=== PATIENT | female | born 2000 | race Two or more races ===

== ENCOUNTER 2025-01-15 15:57 | Emergency (ER) | payer MEDICAID, SELFPAY ==
[2025-01-15 15:58] VITALS: BMI 22.1
[2025-01-15 16:48] VITALS: BP 115/79; PULSE 91; RESP 19; TEMP 37.4; O2SAT 97
--- NOTE | 2025-01-15 16:58 | PD.EDVAGBL ---
ED OB Contraction Preg RMI/HPI General Chief complaint: General Adult/Misc Complain Stated complaint: NEED BLOOD WORK TO CHECK FOR Time Seen by Provider: 01/15/25 16:56 Arrival date/time: 01/15/25 15:57 Limitations: no limitations RME / HPI RME / HPI Narrative: Patient is a 24-year-old female with no chronic medical history. She has had some vaginal spotting since yesterday. She denies any abdominal pain, nausea, vomiting. No fevers or chills. She is on a Depo-Provera shot for control. She has had no prior surgeries. No prior pregnancies. She has no dysuria. There are no other acute complaints. Related Data Allergies Allergy/AdvReac Type Severity Reaction Status Date / Time No Known Allergies Allergy Verified 01/15/25 15:58 Review of Systems Review of Systems Systems Reviewed: All systems reviewed, normal except as documented ED Exam General Limitations: Present no limitations General appearance: Present alert and in no apparent distress Head Head exam: Present atraumatic Eye Eye exam: Present normal appearance, PERRL and EOMI ENT ENT exam: Present normal exam, normal oropharynx and mucous membranes moist Neck Neck exam: Present normal inspection, full ROM and trachea midline Chest Chest inspection: Present normal inspection and symmetric chest wall rise Respiratory Respiratory exam: Present normal lung sounds bilaterally Cardiovascular Cardiovascular exam: Present regular rate, normal rhythm and normal heart sounds Abdominal Exam Abdominal exam: Present soft; Absent distention, tenderness or guarding Extremities Exam Extremities exam: Present normal inspection and full ROM Back Exam Back exam: Present normal inspection and full ROM Neurological Exam Neurological exam: Present alert and oriented X3 Psychiatric Psychiatric exam: Present normal affect and normal mood Skin Skin exam: Present warm, dry, intact and normal color Course Quality Measures none Orders Category Date Time Status CBC Stat Lab 01/15/25 17:17 Completed CMP [Comprehensive Metabolic Panel] Stat Lab 01/15/25 17:17 Completed HCG,Qualitative Serum Stat Lab 01/15/25 17:17 Completed UA, C/S IF [Urinalysis, C/S if Indicated] Stat Lab 01/15/25 18:39 Completed Vital Signs Vital signs: Vital Signs Temperature 99.3 F 01/15/25 16:48 Pulse Rate 91 01/15/25 16:48 Respiratory Rate 19 01/15/25 16:48 Blood Pressure 115/79 01/15/25 16:48 Pulse Oximetry (%) 97 01/15/25 16:48 Oxygen Delivery Method Room Air 01/15/25 16:48 Vaginal Bleeding MDM Narrative MDM Narrative: Patient is a 24-year-old female with no chronic medical history. She has had some vaginal spotting since yesterday. She denies any abdominal pain, nausea, vomiting. No fevers or chills. She is on a Depo-Provera shot for control. She has had no prior surgeries. No prior pregnancies. She has no dysuria. There are no other acute complaints. On exam, patient is nontoxic-appearing and in no visible signs of distress. The history was initially difficult to obtain as the patient would not respond to questions for the first few minutes. She later stated that she was then here today for some vaginal spotting that she experienced yesterday. Her abdomen is soft and nontender. Vital signs are stable. Her CBC, CMP, and screening hCG are unremarkable. Urinalysis is unremarkable. She will be discharged in the ER and asked to follow-up with her primary doctor. She may return here for any worsening or emergent changes. Patient data External records reviewed:: None Clinical information provided by:: patient and family Social determinants that could affect healthcare access:: none Patient has the following chronic illnesses:: n/a How is presenting disease/condition affected by chronic disease/condition?: no chronic disease Evaluation data The following diagnostics were reviewed and interpreted by me:: lab results (CBC, CMP, urinalysis, hCG are unremarkable) Lab and/or radiology exams considered but not ordered:: n/a Interpretation Summary: Workup is unremarkable Medications / Prescriptions Medications or Prescriptions considered but not ordered:: n/a Medication administrations:: n/a Consultations Consultation(s) initiated? (list below): No Diagnosis Vaginal Bleeding Differential Diagnosis: threatened , dysfunctional uterine bleeding, menometrorrhagia, incomplete and vaginal bleeding Most likely diagnosis given after review of the tests above:: Vaginal bleeding, menstruation Admission Indicated Admission indicated?: not indicated Admission Request Was there a request for admission?: No Disposition Plan Disposition Plan: Discharge Discharge Attestation Discharge Attestation: The patient and all family members were given an opportunity to ask questions and understood the discharge instructions. Discharge instructions specifically effects, indications for sooner follow up or return to the emergency department, and the expected course of current diagnosis. Patient condition: Stable Discharge Plan Plan Patient Disposition: HOME (Self Care) Patient condition on transfer: Stable Prescriptions/Referrals Referrals: Domenic Bear MD [Primary Care Provider] - In 1 week Problem List Clinical Impression: Menstruation, Vaginal bleeding Patient/Caregiver Discharge Instructions Education Materials: Understanding Uterine Bleeding Additional Instructions: - Your workup today was unremarkable. Please contact your primary doctor to schedule close follow-up appointment. Return to the emergency room at anytime for any emergent concerns. Print Language: [place] Stand Alone Forms: Maribel Award Info., Patient Portal Info Letter
[2025-01-15 17:39] LABS: Basophils # (Auto) 0.0 Thou/mm3 (0.0-0.2); Basophils % (Auto) 0 % (0-2.5); Eosinophils # (Auto) 0.1 Thou/mm3 (0.0-0.5); Eosinophils % (Auto) 1 % (0-10); Hematocrit 38.2 % (36.0-46.0); Hemoglobin 12.0 g/dL (12.0-16.0); Immature Granulocytes Auto 0.02 Thou/mm3 (0.00-0.00); Lymphocytes # (Auto) 1.9 Thou/mm3 (1.0-4.8); Lymphocytes % (Auto) 26 % (10-50); Mean Corpuscular HGB Conc 31.4 g/dl (31.0-37.0); Mean Corpuscular Hemoglobin 24.7 pg (25.0-35.0); Mean Corpuscular Volume 79 fL (80-100); Monocytes # (Auto) 0.7 Thou/mm3 (0.0-0.8); Monocytes % (Auto) 10 % (0-12); Neutrophils # (Auto) 4.5 Thou/mm3 (1.8-7.7); Neutrophils % (Auto) 62 % (37-80); Nucleated Red Blood Cell # 0.00 Thou/mm3 (0.00-0.00); Nucleated Red Blood Cell % 0 /100 WBC (0); Platelet Count 366 Thou/mm3 (140-440); RDW Standard Deviation 42.8 fL (36.4-46.3); Red Blood Count 4.86 Miln/mm3 (4.00-5.20); White Blood Count 7.2 Thou/mm3 (3.6-11.0)
[2025-01-15 17:45] LABS: Alanine Aminotransferase 11 U/L (10-49); Albumin, Serum 4.2 gm/dL (3.5-5.0); Albumin/Globulin Ratio 1.4 (1.2-2.2); Alkaline Phosphatase 70 U/L (46-116); Anion Gap 9 (7-16); Aspartate Amino Transferase 16 U/L (0-34); BUN/Creatinine Ratio 10 Ratio (12-20); Bilirubin,Total 0.3 mg/dL (0.3-1.2); Blood Urea Nitrogen 9 mg/dL (9-23); Calcium 9.7 mg/dL (8.3-10.6); Calcium (Corrected) 9.7 mg/dL (8.5-10.1); Carbon Dioxide 26.1 mMol/L (20.0-31.0); Chloride 106 mMol/L (98-107); Creatinine (Component) 0.9 mg/dL (0.6-1.3); Estimated Creatinine Clearance 79.7 mL/min (>60); Globulin 3.0 gm/dL (2.3-3.5); Glucose 92 mg/dL (74-106); Osmolality,Calculated 279 (275-295); Potassium 4.7 mMol/L (3.4-5.1); Sodium 141 mMol/L (136-145); Total Protein 7.2 gm/dL (5.7-8.2); eGFR > 60 See Note
[2025-01-15 17:48] LABS: HCG,Qualitative Serum Negative
[2025-01-15 19:04] LABS: Collection Type, Urine Voided
[2025-01-15 19:11] LABS: Bilirubin,Urine Negative (Negative); Blood,Urine 1+ (Negative); Clarity,Urine Clear (Clear/Hazy); Color,Urine Colorless (Lt Yel-Yel); Culture Indicated,Urine Not Indicated; Glucose, Urine Negative (Negative); Ketones,Urine Negative (Negative); Leukocyte Esterase,Urine Negative (Negative); Nitrite,Urine Negative (Negative); PH,Urine 7.5 (5.0-7.0); Protein,Urine Negative (Neg - Trace); RBC,Urine 8 /hpf (0-3); Specific Gravity,Urine 1.009 (1.001-1.035); Squamous Epithelial Cell,Urine < 1 /hpf (0-5); Urobilinogen,Urine Negative mg/dL (0.0-1.0); WBC,Urine 1 /hpf (0-5)
== END 2025-01-15 20:23 | disposition home or self-care (01) ==
PROVIDERS: Physician Assistant Medical; Emergency Provider Emergency Medicine; PCP Family Medicine
DX: N93.9 Abnormal uterine and vaginal bleeding, unspecified (principal)
CPT/HCPCS: 36415; 80053; 81001; 84703; 85025; 99283